=== PATIENT | female | born 1985 | race Caucasian/White ===

== ENCOUNTER 2019-12-04 11:24 | Emergency (ER) | payer OTHER ==
[~2019-12-04] VITALS: Ht 167.6 cm; Wt 135.2 kg
[2019-12-04 11:33] VITALS: BP 138/73; Ht 167.6 cm; Wt 135.2 kg
== END 2019-12-04 13:41 | disposition home or self-care (01) ==
LOC: ED 11:24
DX: S05.02XA Injury of conjunctiva and corneal abrasion without foreign body, left eye, initial encounter (principal); W18.30XA Fall on same level, unspecified, initial encounter; Y93.89 Activity, other specified; Y92.89 Other specified places as the place of occurrence of the external cause; Y99.8 Other external cause status